=== PATIENT | male | born 1970 | race Caucasian/White ===

== ENCOUNTER 2023-08-20 09:53 | Outpatient (CLI) | payer BC | END 2023-08-20 09:54 | disposition home or self-care (01) | LOC: CSHMRI 09:53 | PROVIDERS: ATTEND Family Medicine | DX: M47.22 Other spondylosis with radiculopathy, cervical region (principal); M50.123 Cervical disc disorder at C6-C7 level with radiculopathy; M48.02 Spinal stenosis, cervical region | CPT/HCPCS: 72040; 72141 ==

== ENCOUNTER 2024-03-01 16:00 | Outpatient (CLI) | payer BC | END 2024-03-01 16:01 | disposition home or self-care (01) | LOC: CSHSLEEP 16:00 | PROVIDERS: ATTEND Internal Medicine | DX: G47.33 Obstructive sleep apnea (adult) (pediatric) (principal) | CPT/HCPCS: 95810 ==

== ENCOUNTER 2024-04-16 16:00 | Outpatient (CLI) | payer BC | END 2024-04-16 16:01 | disposition home or self-care (01) | LOC: CSHSLEEP 16:00 | PROVIDERS: ATTEND Internal Medicine | DX: G47.33 Obstructive sleep apnea (adult) (pediatric) (principal) | CPT/HCPCS: 95800 ==

== ENCOUNTER 2024-05-10 08:43 | Outpatient (CLI) | payer BC | END 2024-05-10 08:44 | disposition home or self-care (01) | LOC: CSHSLEEP 08:43 | PROVIDERS: ATTEND Internal Medicine | DX: G47.33 Obstructive sleep apnea (adult) (pediatric) (principal) | CPT/HCPCS: 95811 ==